=== PATIENT | male | born 1990 ===

== ENCOUNTER 2017-11-06 02:41 | Emergency (ER) | payer MEDICAID ==
[2017-11-06 02:56] VITALS: BP 102/64; PULSE 78; RESP 14; TEMP 98.5; O2SAT 99
== END 2017-11-06 03:00 | disposition left against medical advice (07) ==
LOC: C.ER 02:41
DX: Z02.89 Encounter for other administrative examinations (principal); Z04.1 Encounter for examination and observation following transport accident

== ENCOUNTER 2017-11-06 05:20 | Emergency (ER) | payer MEDICAID ==
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
[2017-11-06 07:23] LABS: BASO # 0.1 K/uL (0.0-0.2); BASO % 0.5 % (0.0-2.0); EOS # 0.1 K/uL (0.0-0.7); EOS % 0.6 % (0.0-4.0); HEMOGLOBIN 15.7 g/dL (12.0-18.0); LYMPH # 2.9 K/uL (1.0-4.3); LYMPH % 21.3 % (20.0-40.0); MEAN CELL VOLUME 88.2 fL (80.0-94.0); MEAN CORPUSCULAR HEMOGLOBIN 30.7 pg (27.0-31.0); MEAN CORPUSCULAR HGB CONC 34.8 g/dL (33.0-37.0); MEAN PLATELET VOLUME 8.2 fL (7.2-11.7); MONO # 1.5 K/uL (0.0-0.8); MONO % 10.7 % (0.0-10.0); NEUT # 9.1 K/uL (1.8-7.0); NEUT % 66.9 % (50.0-75.0); NRBC % 0.1 % (0.0-2.0); RBC 5.12 Mil/uL (4.40-5.90); RED CELL DISTRIBUTION WIDTH 13.5 % (11.5-14.5); WHITE BLOOD COUNT 13.6 K/uL (4.8-10.8)
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
[2017-11-06 07:29] LABS: INR 1.1; PROTHROMBIN TIME 11.9 SECONDS (9.7-12.2)
[2017-11-06 07:32] LABS: ALB/GLOB RATIO 1.3 (1.0-2.1); ALBUMIN 4.5 g/dL (3.5-5.0); ALT/SGPT 50 U/L (21-72); AST/SGOT 32 U/L (17-59); BLOOD UREA NITROGEN 12 mg/dL (9-20); CALCIUM 8.9 mg/dl (8.6-10.4); GFR AFRICAN-AMERICAN > 60; GFR NON-AFRICAN AMERICAN > 60
[2017-11-06] MEDS ORDERED: Iodixanol 320 MG/ML 100 ML BOTTLE IV ONE (08:42)
[2017-11-06 09:29] VITALS: RESP 18
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
[2017-11-06 10:48] VITALS: BP 136/79; PULSE 88; TEMP 99.3; O2SAT 99
--- NOTE | 2017-11-09 22:10 | CARD ---
APPROVED REPORT EKG Measurement Heart [id number] <Conclusion> Normal sinus rhythm Early repolarization Normal ECG
== END 2017-11-06 10:56 | disposition home or self-care (01) ==
LOC: C.ER 05:20
DX: Z04.1 Encounter for examination and observation following transport accident (principal)
CPT/HCPCS: 70450; 71260; 72125; 74177; 80053; 85025; 85610; 85730; 99285; G0480; Q9967